=== PATIENT | male | born 1995 | race Caucasian/White ===

== ENCOUNTER 2016-10-27 22:09 | Inpatient (IN) | payer BC ==
[~2016-10-27] VITALS: Ht 180.3 cm; Wt 77.2 kg
[2016-10-27] MEDS ORDERED: ONDANSETRON INJ 2 MG/ML 2 ML VIAL IV STA (22:25)
[2016-10-27] MEDS ORDERED: SODIUM CHLORIDE 0.9% 1000ML 1,000 ML IV STA (22:25)
[2016-10-27] MEDS ORDERED: SODIUM CHLORIDE 0.9% 1000ML 500 ML IV STA (22:25)
--- NOTE | 2016-10-27 22:29 | EMERGENCY ROOM VISIT NOTE ---
History Report prepared by Zoey: Amador Benson Under the Supervision of: Dr. Osmani Nagel M.D. First contact with patient: 22:17 Chief Complaint: ABDOMINAL PAIN Stated Complaint: ABD PAIN OVER 24 HOURS History of Present Illness The patient is a 21 year old male who presents to the Emergency Room with complaints of lower quadrant abdominal pain that began last night. He rates his current pain a 5/10 in severity. After the patient ate dinner last night, he began to have this pain. He initially thought it may have been constipation, so he did not do anything about it. He went to bed and woke the next morning. He had an episode of diarrhea, so he took some Pepto Bismol. After falling back asleep for a couple hours, he woke up with more abdominal pain. He states that his pain is better if he lies in the position. His pain worsens with sudden movements. He then had chills and nausea with one episode of emesis. He denies any fever or abnormal urinary symptoms. He also denies any back pain or pain in his testicles. He tried a Gas-X today and took Ibuprofen 200 mg PO without relief. He has not had any abdominal surgeries. He does not have any past medical history. Source of History: patient Onset: last night Position: abdomen Symptom Intensity: 5/10 Quality: ache Timing: constant Modifying Factors (Worsening): movement (sudden) Modifying Factors (Relieving): rest ( position) Associated Symptoms: + chills, + diarrhea, + nausea, + vomiting, No fevers, No urinary symptoms Review of Systems See HPI for pertinent positives & negatives. A total of 10 systems reviewed and were otherwise negative. Family History Cancer Diabetes mellitus Social History Smoking Status: Never Smoker Smokeless Tobacco Use: No Drug Use: none Marital Status: single Housing Status: lives with roommate Occupation Status: student Current/Historical Medications Scheduled Bismuth Subsalicylate (Pepto-Bismol), 1 DOSE PO PRN UD Creatine (Bulk) (Creatine), 1 DOSE PO UD Fish Oil (Cocoa-3), 1 CAP PO DAILY Ibuprofen (Advil), 200 MG PO PRN Protein (Whey Protein), 1 DOSE PO UD Simethicone (Gas-X), 1 TAB PO UD Allergies Coded Allergies: No Known Allergies (Unverified , 01/08/14) Physical Exam Vital Signs Date Time Temp Pulse Resp B/P Pulse Ox O2 Delivery O2 Flow Rate FiO2 10/27/16 23:46 75 20 137/85 98 Room Air 10/27/16 22:15 36.4 83 20 128/71 95 Room Air Physical Exam GENERAL: Patient is in no acute distress. HEENT: No acute trauma, normocephalic atraumatic, mucous membranes moist, no nasal congestion, no scleral icterus. NECK: No stridor, no adenopathy, no meningismus, trachea is midline. LUNGS: Clear to auscultation bilaterally, no wheeze, no rhonchi, breath sounds equal. HEART: Without murmurs gallops or rubs, regular rate and rhythm. ABDOMEN: Soft, moderately tender to the RLQ and mildly tender in the LLQ, bowel sounds positive, no hernias, no peritonitis. EXTREMITIES: No cyanosis or edema, full range of motion of all the joints without pain or difficulty, no signs for acute trauma. NEUROLOGIC: Oriented x 3, no acute motor or sensory deficits, no focal weakness. SKIN: No rash, no jaundice, no diaphoresis. Medical Decision & Procedures ER Provider Diagnostic Interpretation: Urine dip was negative for infection or blood. Radiology results are stated below per my review and radiologist interpretation: US APPENDIX: Findings highly suggestive of appendicitis. Maximal diameter is 1.1cm. 5 mm presumed appendicolith. Trace free fluid. Radiologist: Johnathon Cárdenas M.D. Laboratory Results 10/27/16 22:56 Red Blood Count 5.28, Mean Corpuscular Volume 81.4, Mean Corpuscular Hemoglobin 28.4, Mean Corpuscular Hemoglobin Concent 34.9, Mean Platelet Volume 9.2, Neutrophils (%) (Auto) 84.3, Lymphocytes (%) (Auto) 8.1, Monocytes (%) (Auto) 7.3, Eosinophils (%) (Auto) 0.1, Basophils (%) (Auto) 0.0, Neutrophils # (Auto) 10.48, Lymphocytes # (Auto) 1.01, Monocytes # (Auto) 0.91, Eosinophils # (Auto) 0.01, Basophils # (Auto) 0.00 10/27/16 22:56 Test 10/27/16 22:56 10/28/16 00:12 White Blood Count 12.43 K/uL (4.8-10.8) Red Blood Count 5.28 M/uL (4.7-6.1) Hemoglobin 15.0 g/dL (14.0-18.0) Hematocrit 43.0 % (42-52) Mean Corpuscular Volume 81.4 fL (80-100) Mean Corpuscular Hemoglobin 28.4 pg (25-34) Mean Corpuscular Hemoglobin Concent 34.9 g/dl (32-36) Platelet Count 198 K/uL (130-400) Mean Platelet Volume 9.2 fL (7.4-10.4) Neutrophils (%) (Auto) 84.3 % Lymphocytes (%) (Auto) 8.1 % Monocytes (%) (Auto) 7.3 % Eosinophils (%) (Auto) 0.1 % Basophils (%) (Auto) 0.0 % Neutrophils # (Auto) 10.48 K/uL (1.4-6.5) Lymphocytes # (Auto) 1.01 K/uL (1.2-3.4) Monocytes # (Auto) 0.91 K/uL (0.11-0.59) Eosinophils # (Auto) 0.01 K/uL (0-0.5) Basophils # (Auto) 0.00 K/uL (0-0.2) RDW Standard Deviation 39.0 fL (36.4-46.3) RDW Coefficient of Variation 13.0 % (11.5-14.5) Immature Granulocyte % (Auto) 0.2 % Immature Granulocyte # (Auto) 0.02 K/uL (0.00-0.02) Anion Gap 9.0 mmol/L (3-11) Est Creatinine Clear Calc Drug Dose 125.4 ml/min Estimated GFR () 125.0 Estimated GFR (Non- 107.9 BUN/Creatinine Ratio 14.9 (10-20) Calcium Level 9.5 mg/dl (8.5-10.1) Total Bilirubin 0.6 mg/dl (0.2-1) Aspartate Amino Transf (AST/SGOT) 32 U/L (15-37) Alanine Aminotransferase (ALT/SGPT) 57 U/L (12-78) Alkaline Phosphatase 110 U/L (45-117) Total Protein 7.5 gm/dl (6.4-8.2) Albumin 4.3 gm/dl (3.4-5.0) Globulin 3.2 gm/dl (2.5-4.0) Albumin/Globulin Ratio 1.3 (0.9-2) Lipase 122 U/L (73-393) Laboratory results reviewed by me. Medications Administered Medications (Trade) Dose Ordered Sig/Jr Route Start Time Stop Time Status Last Admin Dose Admin Sodium Chloride 500 ml @ 999 mls/hr Q31M STAT IV 10/27/16 22:25 10/27/16 22:55 DC 10/27/16 23:08 999 MLS/HR Sodium Chloride (Nss 1000ml) 1,000 ml @ 200 mls/hr Q5H STAT IV 10/27/16 22:25 10/28/16 03:24 10/27/16 23:57 200 MLS/HR ED Course 7: The patient was evaluated in room B8. A complete history and physical exam was performed. 5: Ordered Sodium Chloride 1000 ml @ 200 mls/hr IV, Zofran Inj 4 mg IV, Sodium Chloride 500 ml @ 999 mls/hr IV 2350: Upon reexamination the patient is resting. I discussed results and treatment plan with the patient. He verbalizes agreement and understanding. The patient will be evaluated by Dr. Rios - Surgery, for further management. Medical Decision Differential diagnosis includes but is not limited to appendicitis, mesenteric adenitis, UTI, hernia, viral illness, dehydration, and electrolyte imbalance. There is a mild leukocytosis which would be consistent with infection. No concerning anemia. No significant electrolyte abnormality, kidney failure, hepatitis or pancreatitis. Urine dip was negative for infection or blood. Abdominal ultrasound shows an appendicolith with findings of acute appendicitis. The patient received IV saline, IV Zofran, he did not require anything for pain. Given his findings, I did consult the on-call surgeon. The patient will be hospitalized. I talked to case management, I talked to the family. Admission/observation for appendectomy is warranted. Consults Time Called: [phone] Consulting Physician: Dr. Rios - General Surgery Returned Call: [phone] He will be evaluating the patient for further management. Impression Primary Impression: Acute appendicitis Scribe Attestation The scribe's documentation has been prepared under my direction and personally reviewed by me in its entirety. I confirm that the note above accurately reflects all work, treatment, procedures, and medical decision making performed by me. Departure Information Dispostion Being Evaluated By Surgeon Referrals Bubba Saba M.D. (PCP) Patient Instructions My [facility]
[2016-10-27 23:05] LABS: COMPLETE YES; EOS % 0.1 %; IG% 0.2 %; LYMPH % 8.1 %; LYMPH ABS # 1.01 K/uL (1.2-3.4); MEAN CELL VOLUME 81.4 fL (80-100); MEAN CORPUSCULAR HEMOGLOBIN 28.4 pg (25-34); MEAN CORPUSCULAR HGB CONC 34.9 g/dl (32-36); MEAN PLATELET VOLUME 9.2 fL (7.4-10.4); MONO % 7.3 %; NEUT % 84.3 %; PLATELET COUNT 198 K/uL (130-400); RED BLOOD COUNT 5.28 M/uL (4.7-6.1); WHITE BLOOD COUNT 12.43 K/uL (4.8-10.8)
[2016-10-27] MEDS ORDERED: BISM262S7 PO (23:05)
[2016-10-27] MEDS ORDERED: PROT1POW7 PO (23:05)
[2016-10-27] MEDS ORDERED: SIME80CH PO (23:05)
[2016-10-27] MEDS ORDERED: IBUP-1050 PO (23:05)
[2016-10-27] MEDS ORDERED: OMEG10007 PO (23:05)
[2016-10-27] MEDS ORDERED: CREAPOW7 PO (23:05)
[2016-10-27 23:26] LABS: BUN/CREATININE RATIO 14.9 (10-20); CALCIUM 9.5 mg/dl (8.5-10.1); POTASSIUM 3.6 mmol/L (3.5-5.1)
[2016-10-27 23:28] LABS: ALB/GLOB RATIO 1.3 (0.9-2)
[2016-10-28] VITALS (10 sets, daily range): BP systolic 115–128; BP diastolic 56–73; PULSE 49–63; TEMP 36.6–36.7; O2SAT 97–99; Ht 180.3 cm; Wt 77.2 kg
[2016-10-28] MEDS ORDERED: CEFOXITIN SOD 2 GM VIAL IV STA (00:09)
[2016-10-28] MEDS ORDERED: HYDROmorphone INJ 1 MG/ML SYR IV PRN (00:15)
[2016-10-28] MEDS ORDERED: ONDANSETRON INJ 2 MG/ML 2 ML VIAL IV PRN ×2 (00:15→01:45)
--- NOTE | 2016-10-28 00:17 | History & Physical Bridge Note ---
H&P Re-Evaluation Bridge Note: I have examined the patient, reviewed the History & Physical and in the interval since the performance of the History & Physical I have noted the following changes of clinical significance: No changes notedh and p dictated stat line confirmation number [id number], dx acute appendicitis, plan lap appy
[2016-10-28 00:32] LABS: URINE APPEARANCE CLEAR (CLEAR); URINE BILIRUBIN NEG (NEG); URINE COLOR YELLOW; URINE NITRITE NEG (NEG); URINE PH 7.5 (4.5-7.5); URINE SPECIFIC GRAVITY 1.012 (1.000-1.030); UROBILINOGEN NEG (NEG); ZZUR CULT IF INDIC CLEAN CATCH NO
[2016-10-28 00:34] LABS: MANUAL MICROSCOPIC REQUIRED? NO; REVIEW REQ? NO
[2016-10-28] MEDS ORDERED: LIDOCAINE/EPINEPHRINE 1% 20 ML VIAL ONE (00:51)
[2016-10-28] MEDS ORDERED: PROPOFOL IV EMULSION 10 MG/ML 20 ML VIAL IV ONE (00:55)
[2016-10-28] MEDS ORDERED: SUCCINYLCHOLINE 100MG/5ML SYR IV ONE (00:55)
[2016-10-28] MEDS ORDERED: FENTANYL CITRATE INJ 50 MCG/1 ML 2 ML VIAL ONE (00:56)
[2016-10-28] MEDS ORDERED: MIDAZOLAM HCL 1 MG/ML 2ML VIAL ONE (00:57)
--- NOTE | 2016-10-28 01:20 | HISTORY & PHYSICAL EXAMINATION ---
DATE OF ADMISSION: 10/28/2016 TIME: 00:10 in the morning. SUMMARY: I was called by Dr. Nagel to see this gentleman, who is a 21-year-old, who by ultrasound, according to Dr. Nagel who had talked to the radiologist and I do not have an official report, stated he had an appendicolith in the appendix,0 consistent with acute appendicitis. 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 His mother is at the bedside. He has had some abdominal pain last evening, progressively got worse. It started after eating supper with associated nausea, came into the Emergency Room and was found to have these findings. PAST MEDICAL HISTORY: Unremarkable. ALLERGIES: He has no known allergies. MEDICATIONS: He takes no medicines on a routine basis. REVIEW OF SYSTEMS: Review of systems 1-10 were all reviewed and they were all negative. PHYSICAL EXAMINATION: GENERAL: At this time, this gentleman is in no acute distress. VITAL SIGNS: His temperature is 36.4, pulse 75, respiration 20, blood pressure 137/85, O2 sats 98 on room air. EYES: PERRLA. Sclerae is nonicteric, slight conjunctivitis, a congenital injection. NECK: Cervical lymphadenopathy, none. HEART: Normal sinus. LUNGS: Clear. [id number]: Soft. He does have localized pain and rebound in the right lower quadrant at McBurney's point. EXTREMITIES: Grossly normal. There are no hernias. LABORATORY: Laboratory dodson, his white count is 12.43 with a left shift, hemoglobin is 15. Liver function tests were all normal. ASSESSMENT AND PLAN: Our plan at this time is to proceed with laparoscopic appendectomy, possible open. Risks and complications were explained to the patient and the mother, including bleeding, infection, converting to an open procedure and would like to proceed accordingly.
[2016-10-28] MEDS ORDERED: ONDANSETRON INJ 2 MG/ML 2 ML VIAL ONE ×2 (01:39)
[2016-10-28] MEDS ORDERED: ROCURONIUM BROMIDE 10 MG/ML 5 ML VIAL ONE (01:39)
[2016-10-28] MEDS ORDERED: NEOSTIGMINE METHYLSULFATE 5 MG/5 ML SYR ONE (01:39)
[2016-10-28] MEDS ORDERED: DEXAMETHASONE SOD INJ 4 MG/ML VIAL ONE (01:39)
[2016-10-28] MEDS ORDERED: GLYCOPYRROLATE INJ 0.2 MG/ML VIAL ONE (01:39)
[2016-10-28] MEDS ORDERED: LIDOCAINE HCL 2% 2 ML VIAL (20MG/ML) ONE (01:39)
[2016-10-28] MEDS ORDERED: MEPERIDINE HCL 25 MG/ML CARP IV PRN (01:45)
[2016-10-28] MEDS ORDERED: NALOXONE HCL 0.4 MG/1 ML VIAL/CARP IV PRN (01:45)
[2016-10-28] MEDS ORDERED: PHENYLEPHRINE 100MCG/ML 5ML SYR IV PRN (01:45)
[2016-10-28] MEDS ORDERED: LABETALOL HCL IV 5 MG/ML 20ML IV PRN (01:45)
[2016-10-28] MEDS ORDERED: HYDROmorphone INJ 2 MG/ML SYR/VIAL IV PRN (01:45)
[2016-10-28] MEDS ORDERED: FLUMAZENIL 0.1 MG/1 ML 10 ML VIAL IV PRN (01:45)
[2016-10-28] MEDS ORDERED: EpHEDrine SULFATE INJ 50 MG/ML AMP IV PRN (01:45)
[2016-10-28] MEDS ORDERED: ATROPINE SULFATE 0.1 MG/ML 5ML SYR IV PRN (01:45)
[2016-10-28] MEDS ORDERED: FENTANYL CITRATE INJ 50 MCG/1 ML 2 ML VIAL IV PRN (01:45)
[2016-10-28] MEDS ORDERED: KETOROLAC TROMETHAMINE 30 MG/ML VIAL ONE (01:54)
--- NOTE | 2016-10-28 02:09 | [facility] Operative Report ---
Operative Report Operative Date October 28, 2016. Pre-Operative Diagnosis Acute Appendicits Post-Operative Diagnosis same Procedure(s) Performed lap appy Surgeon Dr. Rios Quantity Surveyor Surgeon(s) none Estimated Blood Loss 2.5 ML Findings acute non ruptured appendicitis Specimens A. Appendix I attest to the content of the Intraoperative Record and any orders documented therein. Any exceptions are noted below.
[2016-10-28] MEDS ORDERED: OXYCODONE/ACETAMINOPHEN 5-325 TAB PO PRN (02:15)
--- NOTE | 2016-10-28 02:24 | Anesthesiology Progress Note ---
Anesthesia Post Op Note Date & Time October 28, 2016 at 02:23 Vital Signs Pain Intensity: 0 Vital Signs Past 12 Hours Date Time Temp Pulse Resp B/P Pulse Ox O2 Delivery O2 Flow Rate FiO2 10/28/16 01:05 36.4 75 18 116/58 99 10/28/16 01:03 36.4 75 18 116/58 99 Room Air 10/27/16 23:46 75 20 137/85 98 Room Air 10/27/16 22:15 36.4 83 20 128/71 95 Room Air Notes Mental Status: alert / awake / arousable, participated in evaluation Pt Amnestic to Procedure: Yes Nausea / Vomiting: adequately controlled Pain: adequately controlled Airway Patency, RR, SpO2: stable & adequate BP & HR: stable & adequate Hydration State: stable & adequate Anesthetic Complications: no major complications apparent
[2016-10-28] MEDS: LACTATED RINGER'S 1000ML 1,000 ML IV SCH ×2 (03:44→09:02)
--- NOTE | 2016-10-28 06:55 | DIAGNOSTIC IMAGING REPORT ---
APPENDICEAL ULTRASOUND CLINICAL HISTORY: Right lower quadrant abdominal pain COMPARISON STUDY: CT scan dated 02/27/2006 FINDINGS: There is a noncompressible tubular structure within the right lower quadrant measuring up to 11 mm in diameter. This appears fluid filled. There is an echogenic focus at its base which may represent an appendicolith. The findings are viewed as suspicious for acute appendicitis. IMPRESSION: Ultrasound findings suggestive of acute appendicitis. Electronically signed by: Jeremias Polo M.D. 10/28/2016 6:53 AM Dictated Date/Time: 10/28/2016 6:52 AM
[2016-10-28] MEDS ORDERED: OXYC-57 PO (08:13)
--- NOTE | 2016-10-28 08:14 | Discharge Instructions ---
Discharge Instructions Date of Service October 28, 2016. Admission Reason for Admission: Acute Appendicitis Discharge Discharge Diagnosis / Problem: Appendectomy Discharge Goals Goal(s): Decrease discomfort Activity Recommendations Activity Limitations: as noted below Lifting Limitations: no more than 10 pounds Shower/Bathe: no limitations Driving or Machine Use: resume 3 days after discharge (if not taking Percocet) . Instructions / Follow-Up Instructions / Follow-Up Dr. Rios in 1-2 weeks, call [phone] to schedule, [facility], [address] [facility] Diet Patient's current hospital diet: Regular Diet Discharge Diet Recommended Diet: Regular Diet Procedures Procedures Performed: Laparoscopic Appendectomy Pending Studies Studies pending at discharge: no Medical Emergencies . Who to Call and When: Medical Emergencies: If at any time you feel your situation is an emergency, please call [phone] immediately. . Non-Emergent Contact Non-Emergency issues call your: Surgeon Call Non-Emergent contact if: you have a fever, temperature is above 101.5, your pain is not controlled, wound has increased drainage, wound has increased redness . "Provider Documentation" section prepared by Luis Marrero. . VTE Core Measure Inpt VTE Proph given/why not?: SCD's
--- NOTE | 2016-10-28 08:50 | SURGERY PROGRESS NOTE ---
DATE: 10/28/2016 SUBJECTIVE: Reinaldo is resting comfortably. He has no problem or discomfort. He is postoperative laparoscopic appendectomy and his father is in his room with him. Last vitals showing a temperature of 36.7, pulse 59, respirations 16, blood pressure 121/73. He has voided fine. At this point, we will check him later on today and if he is fine, he can be discharged. Instructions will be given. Intraoperative findings have been discussed with the family postoperatively and we also told the patient this morning. GIULIA
--- NOTE | 2016-10-28 11:48 | OPERATIVE REPORT ---
DATE OF OPERATION: 10/28/2016 SURGEON: Dr. Rios. PREOPERATIVE DIAGNOSIS: Acute appendicitis. POSTOPERATIVE DIAGNOSIS: Same. Acute nonruptured appendicitis. PROCEDURE: Laparoscopic appendectomy. SUMMARY: After induction of adequate general anesthesia, the patient's abdomen was prepped with Betadine solution and properly draped. We made a small transverse incision above the umbilicus sufficient enough to place a Veress needle followed by CO2, followed by a 5 mm trocar. Under direct visualization, we then looked in the right lower quadrant and could not see the appendix. We placed a right upper quadrant 5-mm port with preemptive local analgesia of 1% Xylocaine. We then were able to elevate the cecum, we could see the appendix, was coming off the cecum and was acutely inflamed. At this point, we changed the umbilical trocar to a 11 mm trocar and placed a 5 mm trocar in the left lower quadrant, I was able to elevate the appendix, we created a window between the appendix and the cecum to the point that we placed a purple load EndoGIA stapler across the base taken off the appendix off the cecal area. The mesoappendix was identified easily. There was a small artery that we doubly clipped and divided and there was not much more of the mesoappendix. The appendix that was acutely inflamed, not ruptured. We used another 2 clips and divide that. At this point, the area checked for hemostasis and appeared satisfactory. There was a small, small, very minimal bleeding along the staple line that we cauterized minimally with the Bovie of 20. We suctioned out that area, placed the patient in reverse Trendelenburg position and placed the appendix in an Endopouch and taken out intact through the epigastric port. Prior to doing that, we checked through port site the 5 mm trocars, there was no bleeding appreciated, removed them. Once the appendix was out we closed the abdominal wall fascia in the umbilical area with 0 PDS [id number], the other ones were Monocryl. Steri-Strips applied. The procedure was tolerated well by the patient. Estimated blood loss was 3.5 mL. The patient was taken to the recovery room in good condition. I attest to the content of the Intraoperative Record and any orders documented therein. Any exceptions are noted below. MTDD
--- NOTE | 2016-10-29 15:38 | DISCHARGE SUMMARY ---
PRIMARY DISCHARGE DIAGNOSIS: Acute appendicitis. PROCEDURE PERFORMED: Laparoscopic appendectomy. HOSPITAL COURSE: The patient is a 21-year-old male who presented to the Emergency Department with right lower quadrant pain and chills and nausea. His white count was 12,000. Ultrasound showed an 11 mm fluid filled tubular structure with apparent appendicolith consistent with appendicitis. He was taken to the operating room overnight for laparoscopic appendectomy. He was transferred to the surgical floor. The next morning he was doing well, was tolerating diet and oral analgesics. He was stable for discharge. Abdomen was benign. DISCHARGE INSTRUCTIONS: Discharge home with his family. He will follow up with Dr. Rios in 1 week. He will miss class for the next few days. DISCHARGE MEDICATIONS: Percocet 1-2 tablets every 4 hours as needed. May resume his home supplements including creatine whey protein and omega 3, Motrin 200 mg as needed.
== END 2016-10-28 14:10 | disposition home or self-care (01) | DRG 343 ==
LOC: ENRESERVTM → ENRESERVDT → C.EDB 22:10 → C.MSW 10-28 02:08
PROVIDERS: ADMIT Surgery; ATTEND Surgery
PROC: 0DTJ4ZZ Resection of Appendix, Percutaneous Endoscopic Approach (ICD-10-PCS; principal; 2016-10-28 00:50)
DX: K35.80 Unspecified acute appendicitis (principal)